=== PATIENT | female | born 1960 | race Caucasian/White ===

== ENCOUNTER → 2017-05-06 | Outpatient (CLI) | payer BC ==
[~2017-05-06] MED LIST: ALBUTEROL17 GM IN; ALLEGRA ALLERG180 MG PO; COREG3.125 M1 PO; DELTASONE20 MG PO; EFFEXOR75 M3 PO; EXFORGE 5-320 M1 TAB PO; EXFORGE 5-3201 EACH PO; GABAPENTIN300 M2 PO; PERCOCET 5-3251 TAB PO; PERCOCET5/325 PO; SINGULAIR PO; SPIRIVA RESPIMAT4 G1; XARELTO10 MG PO
--- NOTE | ~2017-05-06 | EKG ---
PATIENT: COMPA GREGORY UNIT #: [id number] Ventricular Rate: 77 BPM Atrial Rate: 77 BPM P-R Interval: 146 ms QRS Duration: 78 ms Q-T Interval: 376 ms QTC Calculation(Bezet): 425 ms P Cressey: 33 degrees Calculated R Cressey: 46 degrees Calculated T Cressey: 55 degrees Diagnosis Line: Normal sinus rhythm Diagnosis Line: Low voltage QRS Diagnosis Line: Borderline ECG Diagnosis Line: Diagnosis Line: Confirmed by SAJI AHUJA MD ([id number]) on Diagnosis Line: 05/06/2017 4:25:24 PM INTERPRETING MDElla HOBBS
[2017-05-06 09:35] LABS: HEMATOCRIT 39.3 % (35.0-45.0); MEAN CELL VOLUME 98.6 FL (83-96); MEAN CORPUSCULAR HEMOGLOBIN 32.6 PG (28-34); MEAN CORPUSCULAR HGB CONC 33.1 g/dL (30-36); MEAN PLATELET VOLUME 7.3 FL (6.5-11.5); RED BLOOD COUNT 3.98 X10e (3.90-5.30); RED CELL DISTRIBUTION WIDTH 13.4 % (11.0-15.5); WHITE BLOOD COUNT 6.3 X10e3 (4.0-10.5)
[2017-05-06 09:37] LABS: URINE APPEARANCE CLEAR; URINE BILIRUBIN NEG (NEG); URINE BLOOD NEG (NEG); URINE COLOR YELLOW; URINE GLUCOSE NEG (NEG); URINE KETONE NEG (NEG); URINE LEUKOCYTE ESTERASE 3+ (NEG); URINE NITRATE POS (NEG); URINE PROTEIN NEG (NEG); URINE SPECIFIC GRAVITY 1.013 (1.003-1.035); URINE UROBILINOGEN 0.2 MG/DL (NEG)
[2017-05-06 09:39] LABS: CULTURE INDICATED? YES; U HYALINE CASTS AUWI 0-2 /[LPF]; URBCS1 AUWI 0-2 /[HPF] (0-2); URINE BACTERIA AUWI 4+ (NEGATIVE); URINE SQUAMOUS EPITHELIAL CELL NONE SEEN /[HPF]; UWBCS1 AUWI 25-50 (0-5)
[2017-05-06 09:50] LABS: URINE SOURCE CLEAN CATCH
[2017-05-06 10:13] LABS: BUN/CREATININE RATIO 13.75; CALCIUM SERUM 9.6 mg/dL (8.4-10.2); CREATININE SERUM 0.8 mg/dL (0.6-1.4); GLOM FILT RATE Estimated 80.8 mL/min (>60); POTASSIUM 4.7 mmol/L (3.5-5.1)
== END | disposition home or self-care (01) ==
LOC: CAMB 08:00
PROVIDERS: Orthopaedic Surgery
DX: Z01.818 Encounter for other preprocedural examination (principal); M19.071 Primary osteoarthritis, right ankle and foot
CPT/HCPCS: 36415; 80048; 81003; 85027; 87070; 87086; 87088; 87186; 93005

== ENCOUNTER 2017-05-20 05:43 | Inpatient (IN) | payer BC ==
[~2017-05-20] VITALS: Ht 158.8 cm; Wt 72.3 kg
--- NOTE | ~2017-05-20 | CR72 ---
[facility] A Service of [facility] & [facility] RADIOLOGY TEXT RESULTS PATIENT: COMPA GREGORY LOCATION: [facility] 448-01 : 56 UNIT #: [id number] AGE: [address]: Mirna Tate MD SEX: F ORDER DR: [id number] [facility] [address] [place], [place] [address] [id number] I MR#: [id number] Acc #: [id number] NAME: COMPA GREGORY : 1960 SEX: F STUDY DATE/TIME: 05/20/2017 20:54 UNIT: [facility] ROOM: [facility] STUDY DESCRIPTION: CR Chest Single View Portable Attending Physician: Jaquelin Tate M.D. Ordering Physician: Jaquelin Tate M.D. Primary Care Physician: Lauren Suarez M.D. MEDICAL IMAGING REPORT This report is preliminary unless electronic signature is present EXAM Chest x-ray portable HISTORY Rule out pneumonia or bronchitis. Short of air and wheezing started today. TECHNIQUE AND COMPARISON A single frontal portable view of the chest timed 2053 on 05/20/2017 is compared to a study from 05/11/2016. FINDINGS There is some linear atelectasis at the lung bases new or increased when compared to previous. The heart size is normal. There is no acute congestive failure. There is probably some distortion of parenchymal architecture with some lucency at the apices and please correlate for a history of chronic obstructive lung disease. Thickening of the central peribronchovascular soft tissues would support a diagnosis of asthma or bronchitis. No pleural effusion. No pneumothorax. IMPRESSION 1. Linear atelectasis at lung bases with likely some thickening of the central peribronchovascular soft tissues supportive of a diagnosis of asthma or bronchitis. There is no congestive failure. There is no pneumothorax. I suspect there is some underlying chronic obstructive lung disease. Dictated by... Vivi Sanabria M.D. THIS IS AN ELECTRONICALLY VERIFIED REPORT Vivi Sanabria M.D. at 05/21/2017 11:00 AM [facility]S. [facility] A Service of [facility] & [facility] RADIOLOGY TEXT RESULTS PATIENT: COMPA GREGORY LOCATION: [facility] 448-01 : [birth year] UNIT #: [id number] AGE: [address]: Mirna Tate MD SEX: F ORDER DR: Rick TD: 05/21/2017 09:35 JOB #: [id number] MEDICAL IMAGING REPORT Page 1 of 1 COPY
--- NOTE | ~2017-05-20 | HP ---
Unit #: [id number] #: [id number] Patient: COMPA GREGORY [id number] [address] [address] [id number] I MR#: [id number] NAME: COMPA GREGORY ROOM: 82785 Age: Sex: F Admission Date: 05/20/2017 : 1960 Attending Physician: Jaquelin Tate M.D. Primary Care Physician: Lauren Suarez M.D. HISTORY AND PHYSICAL CHIEF COMPLAINT Right ankle pain. HISTORY OF PRESENT ILLNESS The patient is a 57-year-old female who had a severe fracture dislocation of the right ankle sustaining a trimalleolar fracture requiring open reduction internal fixation one year ago. The patient is a smoker and had delayed union of her distal fibula, mini malleolus and anterolateral distal tibia. The patient then sustained collapse of her articular surface. CT scan documented an intraarticular subchondral fracture of the tibial plafond which was not apparent in her preoperative radiographs. She is now to undergo hardware removal and right ankle replacement and she also is to undergo syndesmotic fusion. PAST MEDICAL HISTORY Remarkable for 1. Tobacco abuse. The patient stopped smoking and currently denies smoking at present. 2. She also has a history of hypertension. 3. Glaucoma. 4. Uterine cancer. 5. Back and neck arthritis. 6. Asthma. PAST SURGICAL HISTORY 1. Cataract surgery. 2. . 3. Cervical neck and lumbar spine surgery. 4. Right ankle ORIF. HOME MEDICATIONS 1. Cored. 2. Singulair. 3. Chrystal. 4. Effexor. 5. Gabapentin. 6. Exforge. 7. Spiriva. ALLERGIES None. FAMILY HISTORY Heart disease. Unit #: [id number] #: [id number] Patient: COMPA GREGORY SOCIAL HISTORY The patient has a past history of smoking, currently is a nonsmoker. She is a social user of alcohol. REVIEW OF SYSTEMS Unremarkable. PHYSICAL EXAMINATION GENERAL: This is a well developed, well nourished female in no acute distress. PHARYNX: Clear. NECK: Supple without masses. HEART: Regular sinus rhythm without murmurs or gallops. LUNGS: Clear. ABDOMEN: Soft and nontender without masses or organomegaly. Evaluation of the right ankle shows mild swelling. There is a well-healed lateral and medial longitudinal incision. The right heel is in 5 degrees of valgus. Right ankle dorsiflexion 5 degrees, plantar flexion 40 degrees. Subtalar motion is about 25% normal. She has global tenderness to palpation of the anterior aspect of the tibiotalar joint. Pulses are intact. Sensation is normal. Motor exam is normal. DIAGNOSTIC STUDIES IMAGING: Standing x-rays of the right ankle show bone on bone opposition of the superior medial tibiotalar joint. She has a distal fibular plate which is intact as well as one screw fixating the anterolateral tibia, one screw fixating the medial malleolus and one screw fixating the posterior malleolus from anterior and posterior. Syndesmosis appears widened. There is questionable healing of the anterolateral tibial fragment. CT scan shows collapse of the distal tibial subchondral bone consistent with her unrecognized pilon fracture. ADMITTING DIAGNOSES 1. Post traumatic right ankle arthritis. 2. Right ankle syndesmotic instability. 3. Retained right ankle hardware. PLAN Risks and benefits of ankle fusion versus replacement have been discussed. The patient elects for ankle replacement and I would therefore recommend removal of hardware, fusion of the syndesmosis and placement of the Luis Talaris implant. This procedure was described along with risks of bleeding, infection, nerve damage, need for further surgery in the future, prolonged recovery time, deep venous thrombosis, pulmonary embolism, anesthetic complications, wound healing problems, loosening of the prosthesis, infection of the prosthesis. She understands the above risks and agrees to proceed. Dictated by Jaquelin Tate M.D. Unit #: [id number] #: [id number] Patient: COMPA GREGORY RTH/df TD: 05/19/2017 09:02 JOB #: [id number] HISTORY AND PHYSICAL Page 1 of 1 X Mirna Tate MD HISTORY AND PHYSICAL
--- NOTE | ~2017-05-20 | CO ---
Unit #: [id number] #: [id number] Patient: COMPA GREGORY [id number] [address] [place], [place] [address] [id number] I MR#: [id number] NAME: COMPA GREGORY ROOM: [facility] Age: 57 Sex: F Admission Date: 05/20/2017 : 1960 Attending Physician: Jaquelin Tate M.D. Primary Care Physician: Lauren Suarez M.D. CONSULTATION REPORT CHIEF COMPLAINT Respiratory distress. HISTORY OF PRESENT ILLNESS The patient is a 57-year-old female with history of severe fracture dislocation of the right ankle sustaining a trimalleolar fracture requiring open reduction and internal fixation one year ago. The patient underwent right ankle replacement today, and in postop the patient started having wheezing. The patient received DuoNeb; however, the wheezing is persistent and expiratory (1) . The patient stated she has been smoking cigarettes for the last 40 years and was recently treated for bronchitis with 10 days of antibiotics. The patient's last smoke was last night. The patient finished the antibiotics 2 days ago. The patient denies any fever, positive for productive cough and denies any headache or dizziness. PAST MEDICAL HISTORY History of glaucoma, uterine cancer, back and neck arthritis, asthma and tobacco use. PAST SURGICAL HISTORY Cataract surgery, , cervical neck and lumbar spine surgery, right ankle ORIF. HOME MEDICATIONS Patient is on Singulair, Chrystal, Effexor, gabapentin, Exforge, Spiriva. ALLERGIES No known drug allergies. FAMILY HISTORY Positive for heart disease. SOCIAL HISTORY The patient has positive tobacco abuse and social drinker of alcohol and denies any illicit drug abuse. REVIEW OF SYMPTOMS Positive for shortness of breath. Positive for wheezing. Positive for ankle pain. Denies any nausea, vomiting or chest pain. Other review of symptoms performed and are negative. PHYSICAL EXAMINATION GENERAL: The patient is lying in the bed, not in acute distress. Unit #: [id number] #: [id number] Patient: COMPA GREGORY VITALS: Temperature is 98, pulse 88, oxygen saturation 95% on 2 liters, blood pressure 127/58. HEENT: Head atraumatic, normocephalic. Pupils are equally round reactive to light and accommodation. Extraocular movements are intact. NECK: Supple. LUNGS: Decreased air entry at the bases. Positive for expiratory wheezing. HEART: Regular rate and rhythm. ABDOMEN: Soft. Positive bowel sounds. EXTREMITIES: Status post right ankle replacement. NEUROLOGIC: Alert, awake, oriented. DIAGNOSTIC STUDIES LABS: No labs have been done during this admission. The last labs are from May 06. Glucose 91, BUN 11, creatinine 0.8, sodium 132, potassium 4.7, chloride 100, bicarb 26, calcium 9.6. WBC 6.3, hemoglobin 13, hematocrit 39.3, platelets 294. ASSESSMENT 1. Asthma, mild, persistent. 2. Status post right ankle replacement. PLAN Plan to continue with oxygen, DuoNeb q.4 p.r.n., Solu-Medrol 40 mg q.8 (first dose now) and check chest x-ray to rule out pneumonia and bronchitis. Repeat the labs. The patient has been counselled on tobacco cessation and (2) as needed. Further recommendations to follow. Dictated by... Abelardo Baird TD: 05/21/2017 12:33 JOB #: [id number] CONSULTATION REPORT Page 1 of 1 X MARCIE RANDOLPH MD CONSULTATION REPORT
--- NOTE | ~2017-05-20 | OR ---
Unit #: [id number] #: [id number] Patient: COMPA GREGORY [id number] [address] [place], [place] [address] [id number] I MR#: [id number] NAME: COMPA GREGORY ROOM: [facility] Date of Procedure: 05/20/2017 Admission Date: 05/20/2017 Surgeon: Jaquelin Tate M.D. : 1960 Attending Physician: Jaquelin Tate M.D. Primary Care Physician: Lauren Suarez M.D. OPERATIVE REPORT PREOPERATIVE DIAGNOSES 1. Posttraumatic right ankle arthritis. 2. Retained right ankle hardware. 3. Right ankle syndesmotic instability. POSTOPERATIVE DIAGNOSES 1. Posttraumatic right ankle arthritis. 2. Retained right ankle hardware. 3. Right ankle syndesmotic instability. PROCEDURES PERFORMED 1. Right total ankle arthroplasty (52320). 2. Right ankle hardware removal (38756). 3. Right tibial-fibular syndesmotic fusion (02203). [employer]. ANESTHESIA General and popliteal saphenous block. INDICATIONS FOR SURGERY The patient is a 57-year-old female who sustained a fracture dislocation of her right ankle approximately one year ago, requiring open reduction and internal fixation. The patient is a smoker and underwent delayed union of her trimalleolar fracture and then developed posttraumatic arthritis. Subsequent CT scan showed an unrecognized pilon fracture with subchondral collapse of the distal tibial plafond. The patient now was admitted for removal of all hardware and ankle replacement. Risks and benefits of replacement versus fusion have been discussed. The patient has stopped smoking and is now a candidate for further surgery. DESCRIPTION OF PROCEDURE The patient underwent right lower extremity popliteal saphenous block. She was taken to the operating room and placed in supine position, and general anesthetic was induced. The right lower extremity was identified as the correct operative location during the time-out procedure. The IV antibiotic protocol was followed. The right leg was then prepped and draped in the usual sterile fashion. The leg was exsanguinated, and the thigh tourniquet inflated to 300 mmHg. An anterior longitudinal incision was then made over the right ankle, measuring 12 cm. Subcutaneous tissue was divided. The superficial peroneal nerve was identified and preserved. Unit #: [id number] #: [id number] Patient: COMPA GREGORY The extensor retinaculum was opened. The interval between the extensor hallucis longus and anterior tibial tendons was opened, and the neurovascular bundle was retracted laterally. The two previously placed screws in the distal tibia were removed with a screwdriver. The medial malleolar screw was left in place. 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 The tibial alignment guide was then applied for the Luis Talaris implant. It was pinned to the tibial tuberosity into the distal tibia. It was aligned with the tibial shaft. The tibia and talus were both measured at a size zero. A 9-mm cut was selected. The rotation was set. The size zero tibial cutting block was applied. The three drill holes were drilled medially and laterally, and the tibial cut was made. The anterior half of the tibial bone was removed in a piecemeal fashion. The talar pin setting guide was then applied, and the pin was placed in the talar neck. Pin position was confirmed with the mini C-arm fluoroscopy. The tibial alignment guide was then removed. The posterior talar cutting guide was applied, and the four pins were drilled in place, and position was checked with C-arm. The posterior talar cut was made. The pins were removed. The remainder of the posterior tibial cut bone was then removed in a piecemeal fashion. The anterior talar cutting guide was pinned into place, and the anterior talar neck was milled. Finally, the lateral talar cutting guide was applied and checked with C-arm fluoroscopy. The Romo saw was used, and the lateral talar cut was made. The zero talar trial and #0 tibial trial was applied with an 8-mm spacer. The ankle was found to be stable, and range of motion was excellent with dorsiflexion of 5 degrees and plantar flexion of 40 degrees. There was no varus or valgus instability. The wound was copiously irrigated. The final Luis Talaris #0 tibial and talar components were impacted into place with an 8-mm poly. Position was checked with C-arm fluoroscopy and found to be excellent. The lateral ankle scar was used to open the incision over the fibula. The previously placed fibular plate and screws were then removed. The syndesmosis was then exposed subperiosteally. The syndesmosis was denuded of all fibrinous material and articular cartilage using a rongeur and a power osteotome. Cut bone from the distal tibia was then packed into the syndesmotic fusion site along with additional allograft bone chips. These were then impacted into place. The syndesmosis was then compressed with a large bone tenaculum. The syndesmosis was then fixated with two DePuy 4.0 mm diameter cannulated screws placed from lateral to medial. Excellent fixation was achieved. Intraoperative C-arm fluoroscopy documented satisfactory screw position and implant position. The tibial component keel was then bone grafted with autogenous bone graft. A 3-minute dilute Betadine wash to the ankle was then applied and then lavaged with normal saline. The tourniquet was released with a total tourniquet time of 145 minutes. The ankle joint capsule was closed with 2-0 Vicryl [id number] sutures. The extensor retinaculum was closed with 2-0 Vicryl [id number] sutures. Subcutaneous tissue was closed with 3-0 Vicryl, and the skin was closed with 3-0 nylon horizontal mattress sutures. Xeroform gauze, dressing, sponges, Webril, and a posterior fiberglass splint were applied. The patient was then transported to the recovery room in stable condition. Unit #: [id number] #: [id number] Patient: COMPA GREGORY ESTIMATED BLOOD LOSS Minimal. COMPLICATIONS None. SPECIMENS None. TOURNIQUET TIME 1 hour 45 minutes. Dictated byAbelardo Bay/laryl TD: 05/21/2017 05:04 JOB #: [id number] OPERATIVE REPORT Page 1 of 1 X Mirna Tate MD X PROCEDURE OPERATIVE NOTE
[~2017-05-20 05:43] MED LIST changes: -ALBUTEROL17 GM IN; -DELTASONE20 MG PO; -PERCOCET5/325 PO
[2017-05-20 06:58] LABS: URINE APPEARANCE CLEAR; URINE BILIRUBIN NEG (NEG); URINE BLOOD NEG (NEG); URINE COLOR YELLOW; URINE GLUCOSE NEG (NEG); URINE KETONE NEG (NEG); URINE LEUKOCYTE ESTERASE NEG (NEG); URINE NITRATE NEG (NEG); URINE PROTEIN NEG (NEG); URINE SPECIFIC GRAVITY 1.012 (1.003-1.035); URINE UROBILINOGEN 0.2 MG/DL (NEG)
[2017-05-20 07:04] LABS: CULTURE INDICATED? NO
[2017-05-21 04:07] LABS: BASOPHIL% 0.1 % (0-2.5); HEMATOCRIT 36.1 % (35.0-45.0); HEMOGLOBIN 11.6 gm/dL (12.0-16.0); LYMPHOCYTE% 6.7 % (17.0-45.0); MEAN CELL VOLUME 98.4 FL (83-96); MEAN CORPUSCULAR HEMOGLOBIN 31.5 PG (28-34); MEAN CORPUSCULAR HGB CONC 32.1 g/dL (30-36); MEAN PLATELET VOLUME 6.4 FL (6.5-11.5); MONOCYTE# 0.5 X10e3 (0-1.0); MONOCYTE% 3.5 % (3.0-12.0); NEUTROPHIL# 13.2 X10e3 (1.5-7.1); NEUTROPHIL% 89.7 % (40-75); PLATELET COUNT 355 X10e3 (140-420); RED BLOOD COUNT 3.67 X10e (3.90-5.30); RED CELL DISTRIBUTION WIDTH 13.1 % (11.0-15.5); WHITE BLOOD COUNT 14.7 X10e3 (4.0-10.5)
[2017-05-21 04:09] LABS: DIFF IND NO
[2017-05-21 04:34] LABS: BUN/CREATININE RATIO 13.33; CALCIUM SERUM 9.4 mg/dL (8.4-10.2); CREATININE SERUM 0.6 mg/dL (0.6-1.4); GLOM FILT RATE Estimated 99.8 mL/min (>60); POTASSIUM 4.4 mmol/L (3.5-5.1)
[2017-05-21] MEDS ORDERED: XARELTO10 MG PO (10:44)
[2017-05-21] MEDS ORDERED: PERCOCET5/325 PO (10:45)
[2017-05-21] MEDS ORDERED: DELTASONE20 MG PO (15:25)
[2017-05-21] MEDS ORDERED: ALBUTEROL17 GM IN (15:26)
== END 2017-05-21 16:28 | disposition home or self-care (01) | DRG 470 ==
LOC: CSUR 05:43 → CPACUOF 08:55 → CSUR 08:55 → CPACUOF 10:00 → C4B 12:42 → CPACUOF 12:42 → C4B 12:42 → CSUR 13:00 → C4B 05-21 16:28
PROVIDERS: Orthopaedic Surgery
PROC: 0SGF04Z Fusion of Right Ankle Joint with Internal Fixation Device, Open Approach (ICD-10-PCS; 2017-05-20)
PROC: 0QBG0ZZ Excision of Right Tibia, Open Approach (ICD-10-PCS; 2017-05-20)
PROC: 0SRF0JZ Replacement of Right Ankle Joint with Synthetic Substitute, Open Approach (ICD-10-PCS; principal; 2017-05-20 07:30)
PROC: 0QPG04Z Removal of Internal Fixation Device from Right Tibia, Open Approach (ICD-10-PCS; 2017-05-20 07:30)
PROC: 0SGF07Z Fusion of Right Ankle Joint with Autologous Tissue Substitute, Open Approach (ICD-10-PCS; 2017-05-20 07:30)
DX: M19.171 Post-traumatic osteoarthritis, right ankle and foot (principal); E87.1 Hypo-osmolality and hyponatremia; I10 Essential (primary) hypertension; D62 Acute posthemorrhagic anemia; M25.371 Other instability, right ankle; Z87.891 Personal history of nicotine dependence; H40.9 Unspecified glaucoma; J45.909 Unspecified asthma, uncomplicated; Z85.42 Personal history of malignant neoplasm of other parts of uterus; R73.9 Hyperglycemia, unspecified; T38.0X5A Adverse effect of glucocorticoids and synthetic analogues, initial encounter; D72.829 Elevated white blood cell count, unspecified; Z90.710 Acquired absence of both cervix and uterus
CPT/HCPCS: 71010; 80048; 81003; 82947; 83880; 85025; 94010; 94640; 94760; 97116; 97161; C1713; C1776; G8978-GP; G8979-GP; G8980-GP; J0131; J0690; J1100; J1170; J2250; J2270; J2370; J2795; J2920; J2930; J3010; J3490